=== PATIENT | male | born 1960 | race Caucasian/White ===

== ENCOUNTER 2023-05-21 07:37 | Outpatient (OUT) | payer MEDICARE, SELFPAY ==
--- NOTE | 2023-05-21 | VEIN_ITS ---
Patient: KARLEE MEDLEY Exam Date: 05/21/2023 : 1960 Gender:M Ordering : DR GERRI DE LEON D.P.M. Admission #: [id number] Family : FRANCINE OLIVAS WOUND C Order #: [id number] CLICK HERE TO VIEW EXAM This report includes an Addendum and supersedes previous reports for this exam: the PLAN was updated RADIOLOGY REPORT PROCEDURE: [facility] VEIN [facility] - OFFICE VISIT INITIAL COMPARISON: None. PROGRESS NOTES: 63-year-old male who presents with a 35 year history of lower extremity pain, swelling and varicose veins culminated in severe left leg ankle and foot cellulitis requiring hospitalization and antibiotics in February and March this year. The patient is being seen by Dr. Fontenot in the wound clinic and was referred for suspected venous disease. The patient complains bulging dilated discolored veins. The patient describes the pain as burning itching and throbbing rating the pain as a 6 on a scale of 1-10. The patient's swelling and pain is present all the time and is exacerbated by prolonged sitting and standing. The patient is unable to exercise due to obesity and knee pain. Patient's symptoms are partially relieved by rest, leg elevation and over the counter oral analgesics. The patient does complain of severe frostbite resulting in peripheral neuropathy which has resolved over years The patient denies any signs and symptoms to suggest arterial ischemia. The patient describes a family history of varicose veins and heart disease in his mother, family history of arthritis. The patient does not drink alcohol has never smoked. No illicit drug use. Past surgical history significant for left knee arthroscopic. Past medical history significant for fibromyalgia, arthritis, head injury, hypertension, sleep apnea, atrial fibrillation for which she is on Eliquis. No history of deep venous thrombus or pulmonary embolus. See separate history and physical for medication list. No prior treatment for varicose or spider veins. Nursing notes were reviewed. The patient has worn compression stockings/wraps for years After history and physical exam I discussed at length the pathophysiology of venous hypertension and possible treatments, therapies and strategies available. We discussed at length the importance of elevating the lower extremities above the level of the heart, increased physical activity and compression stocking use. We discussed alternatives including continue use of compression wraps, surgical interventions of ligation, stripping and phlebectomy. We discussed intravenous laser ablation and micro foam chemical ablation at length. Risks benefits and alternatives were discussed. The patient's questions were answered. Ultrasound venous reflux study performed the same day was discussed at length with the patient. The report demonstrates chronic thrombus in the left popliteal and proximal great saphenous veins. Bilateral deep vein reflux. Severe left and moderate right great saphenous vein, severe bilateral anterior accessory saphenous vein venous insufficiency with dilatation and saphenofemoral junction reflux. Mild left small saphenous vein venous insufficiency. Bilateral incompetent perforating and varicose veins. PHYSICAL EXAM: The right leg demonstrates moderate scattered varicose and reticular veins. Moderate subcutaneous edema below the knee. Moderate hemosiderin staining. No active ulceration. Moderate skin thickening with mild scattered flaking. The left leg demonstrates moderate to severe diffuse varicose and reticular veins. Severe subcutaneous edema of the calf, ankle and foot most significant in the dorsal forefoot. Areas of active ulceration noted along the distal 1st 2nd and 3rd toes. Extensive hemosiderin staining below the knee. Marked skin thickening with flaking. Both thighs, legs and feet were symmetrically warm to the touch. Good posterior tibial and dorsalis pedis pulses could not be palpated. IMPRESSION: 1. Severe left, moderate right great saphenous vein, severe bilateral anterior accessory saphenous vein, mild left small saphenous vein venous insufficiency with dilatation and junctional reflux 2. Moderate right, severe left incompetent lower extremity perforating and varicose veins 3. Moderate right, severe left lower extremity subcutaneous edema, with left foot ulceration 4. No definite flow significant arterial disease 5. CEAP: C6, Eps, Asp, Pro 6. Chronic nonocclusive deep vein thrombus popliteal and superficial proximal great saphenous vein thrombus PLAN: 1. Endovenous laser ablation left great saphenous vein followed by right great saphenous vein followed by left anterior accessory saphenous vein followed by right anterior accessory saphenous vein 2. Follow-up evaluation of incompetent perforating veins after treatment of the saphenous vein for possible intravenous laser ablations 3. Micro foam chemical ablation bilateral incompetent varicose veins 4. Continue long-term use of bilateral compression wraps 5. Elevated legs and increased physical activity for symptomatic relief Nurse notes, history and physical were reviewed and confirmed, see attached forms. The nurse was present throughout the physical exam and consultation Dictated by: Arcadio Espitia MD on 05/21/2023 at 11:17 Approved by: Arcadio Espitia MD on 05/21/2023 at 11:27 Dictated by: Arcaido Espitia MD on 05/21/2023 at 11:31 Approved by: Arcadio Espitia MD on 05/21/2023 at 11:33
--- NOTE | 2023-05-21 | VEIN_ITS ---
Patient: KARLEE MEDLEY Exam Date: 05/21/2023 : 1960 Gender:M Ordering : DR GERRI DE LEON D.P.M. Admission #: [id number] Family : FRANCINE OLIVAS WOUND C Order #: [id number] CLICK HERE TO VIEW EXAM RADIOLOGY REPORT PROCEDURE: VC EXT VENOUS REFLUX DIPAK LMTD COMPARISON: None. INDICATIONS: Pain due to varicose veins of bilateral legs I83.813 TECHNIQUE: Duplex imaging of the lower extremity to assess the deep and superficial venous system for the presence of deep or superficial venous incompetence and to document the location and severity of disease. The study includes evaluation of the great saphenous vein (GSV), anterior accessory saphenous vein (AASV) and small saphenous vein (SSV). Patient scanned in reverse Trendelenburg and standing. FINDINGS: RIGHT LOWER EXTREMITY: Saphenofemoral Junction Reflux: Yes 9.2mm 1.6 sec GSV: Diam (mm) Reflux/ Time (sec) Proximal Thigh 8.4 Yes 1.6 Mid Thigh 8.7 Yes 0.5 Distal Thigh 10.1 Yes 1.2 Prox Calf 9.8 Yes 1.3 Mid Calf 4.9 Yes 1.9 Saphenopopliteal Junction Reflux: 3.7mm No SSV: Proximal Calf 4.3 No Mid Calf 3.2 No AASV: Proximal Thigh 8.6 Yes 1.3 Mid Thigh 9.2 Yes 3.0 Distal Thigh 9.9 Yes 2.7 Thrombi: Chronic appearing thrombus in popliteal and PTV. Compressibility: Partial compression of popliteal vein and non compression of PTV. Flow: Minimal deep venous reflux. Pediatric Critical Care Nurse: Mid medial lower leg 3.1 mm with 0.5s reflux. Proximal medial lower leg 6.3 mm with 1.5s reflux. Tech Note: Limited visualization of calf veins due to edema and body habitus. Incompetent varicose vein medial knee measures 5.9 mm with 0.7s reflux. Medial mid lower leg varicose vein measures 5.1 mm with 0.5s reflux. LEFT LOWER EXTREMITY: Saphenofemoral Junction Reflux: Yes 12.2 mm 4.8 sec GSV: Diam (mm) Reflux/Time (sec) Proximal Thigh 8.7 Yes 1.4 Mid Thigh 9.9 Yes 3.7 Distal Thigh 15.1 Yes 3.9 Prox Calf 11.1 Yes 3.6 Mid Calf 5.6 Yes 3.4 Saphenopopliteal Junction Relux: 5.7 mm Yes 0.7 SSV: Proximal Calf 5.7 Yes 0.5 Mid Calf 4.8 Yes 0.7 AASV: Proximal Thigh 16.0 Yes 4.0 Mid Thigh 15.4 Yes 3.7 Distal Thigh Thrombi: Chronic appearing thrombus in a 5.9 cm segment of popliteal vein and prox GSV in calf. Compressibility: Partial compression corresponding to thrombus in popliteal and GSV. Flow: Mild deep venous reflux. Pediatric Critical Care Nurse: Distal medial lower leg 5.5 mm with 0.8s reflux. Mid posterior calf 8.2 mm with 0.8s reflux. Tech Note: Limited visualization of calf veins due to edema and body habitus. Thigh extention of left SSV. Incompetent varicose vein proximal posterior calf measures 7.1 mm with 4.2s reflux. Proximal medial lower leg varicose vein measures 7.4 mm with 2.3s reflux. CONCLUSION: 1. Severe left and moderate right great saphenous vein venous insufficiency with dilatation and extensive saphenofemoral junction reflux 2. Severe bilateral anterior accessory saphenous vein venous insufficiency with marked dilatation 3. Mild left small saphenous vein venous insufficiency 4. Bilateral incompetent perforating veins 5. Bilateral incompetent varicose veins Dictated by: Arcadio Espitia MD on 05/21/2023 at 09:30 Approved by: Arcadio Espitia MD on 05/21/2023 at 09:32
== END 2023-05-21 08:00 | disposition home or self-care (01) ==
DX: I83.813 Varicose veins of bilateral lower extremities with pain (principal)
CPT/HCPCS: 93970; G0463

== ENCOUNTER 2023-07-23 12:30 | Outpatient (OUT) | payer MEDICARE, SELFPAY ==
--- NOTE | 2023-07-23 12:25 | VEIN_ITS ---
[address] [address] Patient Name: KARLEE MEDLEY MRN: [id number] date: 1960 Sex: M Assigned Patient Location: Current Patient Location: Accession/Order Number: [id number] Exam Date: 07/23/2023 13:04 Report Date: 07/23/2023 14:12 At the request of: RAFAELA JERNIGAN Procedure: VC Endovenous Ablation 1VeinLT EXAMINATION: VC Endovenous Ablation 1Vein left great saphenous vein HISTORY: I83.813 Pain due to varicose veins of bilateral legs COMPARISON: No relevant comparison available. TECHNIQUE: The risks and benefits of the procedure had been previously discussed, and were rediscussed at length. Informed written consent was obtained. Kush assisted. Time out procedure was performed. The left lower extremity was prepared and draped in the usual sterile fashion to allow knee flexion in the sterile field. Duplex ultrasound probe was draped in a sterile cover, sterile transmission gel was used. Venous mapping was performed with the areas of dilation and large tributaries marked. The total length was 23 cm from the entry mid thigh to 3 cm below the saphenofemoral junction. The vein beneath this area was tortuous and not amenable to laser ablation. The diameter of the greater saphenous vein ranged from 6-15 mm. A 30 gauge needle and 1% buffered lidocaine was used to anesthetize the entry site. A 4 mm incision was made with a scalpel and the saphenous vein was entered percutaneously under direct ultrasound guidance with a micropuncture set, a single stick was successful in gaining access. A micro-guide wire was inserted and the needle removed. A micro-set including a dilator was inserted over the microwire and the needle and dilator were removed. A 0.018 guide wire was inserted through the micro-set and threaded through the saphenous vein to the saphenofemoral junction. The dilator was removed and an introducer sheath was inserted over the wire until the end of the sheath entered the saphenofemoral junction. The dilator and wire were removed and the 600 micron fiber was introduced and placed and positioned so that it extended beyond the sheath and was 3 cm peripheral to the saphenofemoral femoral junction. Final position of the fiber was determined by ultrasound guidance and duplex imaging. Tumescent anesthetic was delivered by ultrasound guidance. 200 cc of fluid was delivered along the entire course of the saphenous vein. The solution consisted of 1000 cc of normal saline with 40 mL of 1% lidocaine and 20 mL of sodium bicarbonate. A final positioning check was made. The energy source was turned on by means of the foot pedal and the fiber and sheath were withdrawn. The total number of Joules delivered was 1976. The laser was active for 247 seconds under continuous pulse, average laser use of 8 J. Laser start time 1:16 PM 07/23/2023 . Laser stop time 1:20 PM 07/23/2023 . A duplex ultrasound revealed compressibility and flow at the saphenofemoral junction immediately after the procedure. Hemostasis at the access site was achieved. The skin incision of the saphenous vein was closed with a 4 x 4. A compression stocking was applied. Postop instructions were given. A follow up appointment was recommended and scheduled. The patient tolerated the procedure well and was discharged in good condition . VEIN/VC Endovenous Ablation 1VeinLT IMPRESSION: Technically successful endovenous laser ablation of the left great saphenous vein Electronically authenticated by: RAFAELA JERNIGAN Date: 07/23/2023 14:12
[2023-07-23] MEDS: 0.9 % SODIUM CHLORIDE 500 ML, LIDOCAINE HCL 20 ML, SODIUM BICARBONATE 10 MEQ INJ (13:42)
== END 2023-07-23 12:31 | disposition home or self-care (01) ==
LOC: VC 12:30
PROVIDERS: PCP Radiology Diagnostic Radiology; Visit Provider Radiology Diagnostic Radiology
DX: I83.813 Varicose veins of bilateral lower extremities with pain (principal)
CPT/HCPCS: 36478

== ENCOUNTER 2023-07-30 12:54 | Outpatient (OUT) | payer MEDICARE, SELFPAY ==
--- NOTE | 2023-07-30 12:55 | VEIN_ITS ---
Patient: KARLEE MEDLEY Exam Date: 07/30/2023 : 1960 Gender:M Ordering : DR RAFAELA JERNIGAN M.D. Admission #: [id number] Family : Order #: [id number] CLICK HERE TO VIEW EXAM RADIOLOGY REPORT PROCEDURE: [facility] EST LMTD VEIN CENTER - OFFICE VISIT FOLLOW UP COMPARISON: None. PROGRESS NOTES: The patient reports improvement in leg symptoms. There has been interval reduction in varicosities. The patient has followed our recommendations to walk 20-30 minutes once or twice per day since the procedure. Physical exam demonstrates decrease in varicosities of the leg. Persistent lower extremity swelling, skin discoloration, and varicosities are identified along the leg; left greater than right. Review of the ultrasound performed the same day demonstrates occlusive thrombus extending throughout the treated vein(s), see separate report, consistent with a successful ablation. No thrombus extending into or beyond the saphenofemoral junction. The patient expressed a desire to proceed with treatment of remaining dilated and incompetent varicosities. The patient was informed that treatment was a process and would require several procedures/sessions. VEIN/[facility] Facility EST LMTD IMPRESSION: 1. Successful ablation of the left great saphenous vein(s). 2. Persistent dilated and incompetent veins and bilateral lower extremity symptoms. PLAN: Endovenous laser ablation of right great saphenous vein. Nurse notes, history and physical were reviewed and confirmed, see attached forms. The nurse was present throughout the physical exam and consultation Dictated by: Blake Dumas M.D. on 07/30/2023 at 13:48 Approved by: Blake Dumas M.D. on 07/30/2023 at 13:49
--- NOTE | 2023-07-30 12:56 | VEIN_ITS ---
Patient: KARLEE MEDLEY Exam Date: 07/30/2023 : 1960 Gender:M Ordering : DR RAFAELA JERNIGAN M.D. Admission #: [id number] Family : Order #: [id number] CLICK HERE TO VIEW EXAM RADIOLOGY REPORT PROCEDURE: VC EXT VENOUS LT LIMITED COMPARISON: None. INDICATIONS: I80.02 Phlebitis of superficial veins of lt lower extremity TECHNIQUE: Lower extremity ridley scale and Duplex Doppler evaluation of the deep venous system from the inguinal ligament through the calf veins. FINDINGS: REGION: Left lower extremity. THROMBI: Negative for DVT. Heat induced thrombus visualized 4.8 cm from the SFJ. The heat induced thrombus extends from groin to mid thigh. COMPRESSIBILITY: Non-compressible segments. FLOW: Areas of no flow. OTHER: CONCLUSION: 1. Successful post ablation occlusion of left great saphenous vein. Dictated by: Blake Dumas M.D. on 07/30/2023 at 13:38 Approved by: Blake Dumas M.D. on 07/30/2023 at 13:48
== END 2023-07-30 12:55 | disposition home or self-care (01) ==
LOC: VC 12:54
PROVIDERS: PCP Radiology Diagnostic Radiology; Visit Provider Radiology Diagnostic Radiology
DX: I80.02 Phlebitis and thrombophlebitis of superficial vessels of left lower extremity (principal)
CPT/HCPCS: 93971; G0463

== ENCOUNTER 2023-10-08 12:18 | Outpatient (OUT) | payer MEDICARE, SELFPAY ==
--- NOTE | 2023-10-08 12:22 | VEIN_ITS ---
[address] [address] Patient Name: KARLEE MEDLEY MRN: [id number] date: 1960 Sex: M Assigned Patient Location: Current Patient Location: Accession/Order Number: [id number] Exam Date: 10/08/2023 12:20 Report Date: 10/08/2023 13:16 At the request of: RAFAELA JERNIGAN Procedure: VC Endovenous Ablation 1VeinRT EXAMINATION: VC Endovenous Ablation 1VeinRT HISTORY: Pain due to varicose veins of bilateral legs I83.813 COMPARISON: No relevant comparison available. TECHNIQUE: The risks and benefits of the procedure had been previously discussed, and were rediscussed at length. Informed written consent was obtained. Jasmyn Rabago and Darci Crouch assisted. Time out procedure was performed. The right lower extremity was prepared and draped in the usual sterile fashion to allow knee flexion in the sterile field. Duplex ultrasound probe was draped in a sterile cover, sterile transmission gel was used. Venous mapping was performed with the areas of dilation and large tributaries marked. The total length was 17 cm from the entry mid thigh to 3 cm below the saphenofemoral junction. The greater saphenous vein below this region was very large and tortuous with mucous 2 separate branches. The diameter of the greater saphenous vein ranged from 9-11 mm. A 30 gauge needle and 1% buffered lidocaine was used to anesthetize the entry site. A 4 mm incision was made with a scalpel and the saphenous vein was entered percutaneously under direct ultrasound guidance with a micropuncture set, a single stick was successful in gaining access. A micro-guide wire was inserted and the needle removed. A micro-set including a dilator was inserted over the microwire and the needle and dilator were removed. A 0.018 guide wire was inserted through the micro-set and threaded through the saphenous vein to the saphenofemoral junction. The dilator was removed and an introducer sheath was inserted over the wire until the end of the sheath entered the saphenofemoral junction. The dilator and wire were removed and the 600 micron fiber was introduced and placed and positioned so that it extended beyond the sheath and was 3 cm peripheral to the saphenofemoral femoral junction. Final position of the fiber was determined by ultrasound guidance and duplex imaging. Tumescent anesthetic was delivered by ultrasound guidance. 125 cc of fluid was delivered along the entire course of the saphenous vein. The solution consisted of 1000 cc of normal saline with 40 mL of 1% lidocaine and 20 mL of sodium bicarbonate. A final positioning check was made. The energy source was turned on by means of the foot pedal and the fiber and sheath were withdrawn. The total number of Joules delivered was 1473. The laser was active for 184seconds under continuous pulse, average laser use of 8 J. Laser start time 1:02 PM 10/08/2023 . Laser stop time 11:05 PM 10/08/2023 . A duplex ultrasound revealed compressibility and flow at the saphenofemoral junction immediately after the procedure. Hemostasis at the access site was achieved. The skin incision of the saphenous vein was closed with a 4 x 4. A compression stocking was applied. Postop instructions were given. A follow up appointment was recommended and scheduled. The patient tolerated the procedure well and was discharged in good condition . VEIN/VC Endovenous Ablation 1VeinRT IMPRESSION: Technically successful endovenous laser ablation of the right great saphenous vein Electronically authenticated by: RAFAELA JERNIGAN Date: 10/08/2023 13:16
[2023-10-08] MEDS: LIDOCAINE HCL 1% 100 MG/10 ML MDV INJ (12:49)
[2023-10-08] MEDS: 0.9 % SODIUM CHLORIDE 500 ML, LIDOCAINE HCL 20 ML, SODIUM BICARBONATE 10 MEQ INJ (12:50)
== END 2023-10-08 12:19 | disposition home or self-care (01) ==
LOC: VC 12:18
PROVIDERS: PCP Radiology Diagnostic Radiology; Visit Provider Radiology Diagnostic Radiology
DX: I83.813 Varicose veins of bilateral lower extremities with pain (principal)
CPT/HCPCS: 36478

== ENCOUNTER 2023-10-13 08:28 | Outpatient (OUT) | payer MEDICARE, SELFPAY ==
--- NOTE | 2023-10-13 08:42 | VEIN_ITS ---
Patient Name: KARLEE MEDLEY MR#: [id number] : 1960 Exam Date: 10/13/2023 Ordering Doctor: DR RAFAELA JERNIGAN M.D. RADIOLOGY REPORT PROCEDURE: [facility] EST L[facility]D [facility] - OFFICE VISIT FOLLOW UP [facility] PROGRESS NOTES: The patient reports improvement in leg symptoms. There has been interval reduction in varicosities. The patient has followed our recommendations to walk 20-30 minutes once or twice per day since the procedure. Physical exam demonstrates decrease in varicosities of the leg. Persistent varicosities are identified along the legs bilaterally. Review of the ultrasound performed the same day demonstrates occlusive thrombus extending throughout the treated vein(s), see separate report, consistent with a successful ablation. No thrombus extending into or beyond the saphenofemoral junction. The patient expressed a desire to proceed with treatment of remaining incompetent varicosities. The patient was informed that treatment was a process and would require several procedures/sessions. VEIN/[facility] EST LMTD IMPRESSION: 1. Successful ablation of the right great saphenous vein(s). 2. Persistent bilateral varicose veins and lower extremity symptoms. PLAN: Endovenous laser ablation of left anterior accessory saphenous vein. Nurse notes, history and physical were reviewed and confirmed, see attached forms. The nurse was present throughout the physical exam and consultation Dictated by: Blake Dumas M.D. on 10/13/2023 at 10:54 Approved by: Blake Dumas M.D. on 10/13/2023 at 10:55
--- NOTE | 2023-10-13 08:42 | VEIN_ITS ---
Patient Name: KARLEE MEDLEY MR#: [id number] : 1960 Exam Date: 10/13/2023 Ordering Doctor: DR RAFAELA JERNIGAN M.D. RADIOLOGY REPORT PROCEDURE: VC EXT VENOUS RT LMTD COMPARISON: None. INDICATIONS: I80.01 Phlebitis of superficial veins of rt lower extremity TECHNIQUE: Lower extremity ridley scale and Duplex Doppler evaluation of the deep venous system from the inguinal ligament through the calf veins. FINDINGS: REGION: Right lower extremity. THROMBI: Negative for DVT. Heat induced thrombus visualized 3.8cm from the SFJ. The heat induced thrombus extends from groin to mid thigh. COMPRESSIBILITY: Choose one.Non-compressible segments corresponding to thrombus FLOW: Areas of no flow corresponding to thrombus OTHER: CONCLUSION: 1. Successful post ablation occlusion of right great saphenous vein. Dictated by: Blake Dumas M.D. on 10/13/2023 at 10:54 Approved by: Blake Dumas M.D. on 10/13/2023 at 10:54
== END 2023-10-13 08:29 | disposition home or self-care (01) ==
LOC: VC 08:28
PROVIDERS: PCP Radiology Diagnostic Radiology; Visit Provider Radiology Diagnostic Radiology
DX: I80.01 Phlebitis and thrombophlebitis of superficial vessels of right lower extremity (principal)
CPT/HCPCS: 93971; G0463